=== PATIENT | male | born 1940 | race Two or more races ===

== ENCOUNTER 2018-09-24 06:56 | Day surgery (SDC) | payer MEDICARE, MEDICAID ==
[2018-09-24] MEDS ORDERED: SEVOFLURANE 250 ML BOTTLE IH ONE (06:57)
[2018-09-24] MEDS ORDERED: IV LACTATED RINGERS SOLUTION 1,000 ML BAG IV ONE (06:57)
[2018-09-24] MEDS ORDERED: NEOSTIGMINE METHYLSULFATE 10 MG/10 ML VIAL IV ONE (06:57)
[2018-09-24] MEDS ORDERED: ONDANSETRON 4 MG/2 ML VIAL IV ONE ×2 (06:57)
[2018-09-24] MEDS ORDERED: VECURONIUM BROMIDE 10 MG VIAL IV ONE (06:57)
[2018-09-24] MEDS ORDERED: LIDOCAINE-MPF 2% 5 ML VIAL MC ONE (06:57)
[2018-09-24] MEDS ORDERED: IRR STERIL WATER FOR IRR 1000 ML BOTTLE IR ONE (06:57)
[2018-09-24] MEDS ORDERED: GLYCOPYRROLATE 0.2 MG/ML VIAL MC ONE (06:57)
[2018-09-24] MEDS ORDERED: PROPOFOL 200 MG/20 ML BOTTLE IV ONE (06:57)
[2018-09-24] MEDS ORDERED: CEFAZOLIN 1 G VIAL MC ONE (06:57)
[2018-09-24] MEDS ORDERED: CEFAZOLIN 50 ML IV ONE (07:56)
[2018-09-24 08:01] LABS: BASOPHILS # (AUTO) 0.1 K/uL (0.0-8.0); EOSINOPHILS # (AUTO) 0.2 K/uL (0.0-0.7); EOSINOPHILS % (AUTO) 3.2 % (0.0-7.0); HEMOGLOBIN 12.8 g/dL (12.5-16.3); LYMPHOCYTES # (AUTO) 1.4 K/uL (20.0-40.0); LYMPHOCYTES % (AUTO) 25.5 % (20.5-51.5); MEAN CORPUSCULAR HEMOGLOBIN 30.5 uug (23.8-33.4); MEAN CORPUSCULAR HGB CONC 35 g/dL (32.5-36.3); MEAN CORPUSCULAR VOLUME 87.9 fL (73.0-96.2); MONOCYTES # (AUTO) 0.7 K/uL (2.0-10.0); MONOCYTES % (AUTO) 12.9 % (0.0-11.0); NEUTROPHILS # (AUTO) 3.2 K/uL (1.8-8.9); NEUTROPHILS % (AUTO) 57.4 % (38.5-71.5); PLATELET COUNT (AUTO) 251 K/uL (152-348); RED BLOOD CELL COUNT(AUTO) 4.21 MIL/uL (4.06-5.63); WHITE BLOOD COUNT (AUTO) 5.6 K/uL (3.6-10.2)
[2018-09-24 08:07] LABS: *BILIRUBIN,URIN 1+ (NEGATIVE); *BLOOD, URINE NEGATIVE (NEGATIVE); *CLARITY,URINE CLEAR (CLEAR); *COLOR,URINE YELLOW (YELLOW); *KETONES,URINE TRACE (NEGATIVE); *UROBILINOGEN,URINE 0.2 E.U./dl (NORMAL); LEUKOCYTE ESTERASE ,URINE NEGATIVE (NEGATIVE); NITRITE, URINE NEGATIVE (NEGATIVE); PH,URINE 5.5 (5.0-8.0); UGLUCOSE NEGATIVE (NEGATIVE)
[2018-09-24 08:20] LABS: CARBON DIOXIDE 25 mmol/L (21-32); CHLORIDE 105 mmol/L (98-107); CREATININE 1.1 mg/dL (0.6-1.3); GLUCOSE 95 mg/dL (74-106); POTASSIUM 3.9 mmol/L (3.5-5.1); UREA NITROGEN, BLOOD 21 mg/dL (7-18)
[2018-09-24 08:24] LABS: BACTERIA,URINE NB /HPF (NONE SEEN); SQUAMOUS EPITHELIAL CELL,UR MODERATE /HPF (NONE SEEN); WBC,URINE 0-3 /HPF (0-3)
[2018-09-24 08:25] LABS: CALCIUM OXALATE CRYSTALS,UR FEW /HPF (NONE SEEN)
[2018-09-24 08:26] LABS: MUCUS,URINE FEW /LPF (0-FEW)
[2018-09-24] MEDS ORDERED: MIDAZOLAM HCL 2 MG/2 ML VIAL ONE (09:11)
[2018-09-24] MEDS ORDERED: FENTANYL CITRATE 250 MCG/5 ML AMPUL ONE (09:11)
[2018-09-24] MEDS ORDERED: METOCLOPRAMIDE HCL 10 MG/2 ML VIAL ONE (09:12)
[2018-09-24] MEDS ORDERED: ROCURONIUM BROMIDE 50 MG/5 ML VIAL ONE (09:13)
[2018-09-24] MEDS ORDERED: BUPIVACAINE PF 0.5% 30 ML VIAL ONE (09:18)
[2018-09-24] MEDS ORDERED: LIDOCAINE 1%-EPI 1:100,000 20 ML VIAL ONE ×2 (09:19→10:35)
[2018-09-24] MEDS ORDERED: KETOROLAC TROMETHAMINE 30 MG INJ ONE (11:20)
[2018-09-24] MEDS ORDERED: GABAPENTIN 300 MG CAPSULE PO ONE (12:00)
[2018-09-24] MEDS ORDERED: ACETAMINOPHEN 325 MG TABLET PO ONE (12:00)
[2018-09-24] MEDS ORDERED: IBUPROFEN 800 MG TABLET PO ONE (12:00)
== END 2018-09-24 13:06 | disposition home or self-care (01) ==
LOC: DS 06:56
PROVIDERS: ATTEND Surgery
DX: K40.30 Unilateral inguinal hernia, with obstruction, without gangrene, not specified as recurrent (principal); Z79.899 Other long term (current) drug therapy; Z79.01 Long term (current) use of anticoagulants; F17.200 Nicotine dependence, unspecified, uncomplicated; I10 Essential (primary) hypertension; E78.00 Pure hypercholesterolemia, unspecified; Z98.890 Other specified postprocedural states; Z80.8 Family history of malignant neoplasm of other organs or systems
CPT/HCPCS: 36415; 49507; 80048; 81001; 85025; 85730; J0690 ×2; J1885; J2250; J2405 ×2; J2710; J2765; J3010; J3490 ×7; J7120 ×2; A4217; A4649; A4663